=== PATIENT | female | born 1950 | race Two or more races ===

== ENCOUNTER 2023-12-21 01:15 | Emergency (ER) | payer OTHER ==
[~2023-12-21] VITALS: Ht 172.7 cm; Wt 62.6 kg
[2023-12-21] MEDS ORDERED: KETOROLAC TROMETHAMINE 60 MG VIAL IM STA (02:45)
[2023-12-21] MEDS ORDERED: ACETAMINOPHEN 500 MG GEL..CAP PO STA (02:46)
== END 2023-12-21 03:21 | disposition home or self-care (01) ==
LOC: ER 01:16
DX: S93.491A Sprain of other ligament of right ankle, initial encounter (principal); Y93.A3 Activity, aerobic and step exercise; Y93.89 Activity, other specified; Y92.018 Other place in single-family (private) house as the place of occurrence of the external cause
CPT/HCPCS: 73600; 73620; 96372; 99283; J1885